=== PATIENT | female | born 2005 | race Caucasian/White ===

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

== ENCOUNTER 2025-01-01 07:42 | Inpatient (IN) ==
[2025-01-01] MEDS ORDERED: LIDOCAINE 1% LOCAL 20 ML VIAL INFIL PRN (08:00)
[2025-01-01] MEDS ORDERED: OXYTOCIN 30 UNITS/NSS 30 UNITS/500 ML BAG IV PRN ×2 (08:00→13:08)
[2025-01-01 09:00] LABS: Hematocrit (blood only) 34.7 % (37.0-47.0); Hemoglobin 11.3 g/dl (12.0-16.0); Mean Corpuscular Hemoglobin 26.2 pg (25.0-34.0); Mean Corpuscular Volume 80.3 fL (80.0-100.0); Platelet Count 255 K/uL (130-400); RDW Standard Deviation 63.2 fL (36.4-46.3); Red Blood Count 4.32 M/uL (4.20-5.40); White Blood Count 11.39 K/ul (4.8-10.8)
--- NOTE | 2025-01-01 09:00 | History & Physical Report ---
Date of Service January 01, 2025 Assessment & Plan (1) Normal labor: Plan: Pt is a 19yo at 40w 0d with PMH of Preeclampsia presenting for induction of labor Routine labs ordered Pitocin prn Epidural placement on demand Monitor tracing Expectant management for labor, anticipate Rubella equivocal, recommend MMR vaccine before d/c Admission and Anticipated Discharge Date Admission Date: January 01, 2025 History of Present Illness Chief Complaint: IOL Primary Care Provider: NO PCP Pt is a 19yo female currently at 40w 0d with an HESHAM 01/01/25 who is here for induction of labor. Adequate movement; not feeling contractions, no fluid loss; no bloody show PMH: Preeclampsia Had regular appointments with OB. Labs: Blood Type A Positive 08/27/24 Antibody Screen NEGATIVE 08/27/24 Hgb 11.1 g/dl (12.0-16.0) L 12/25/24 Hct 34.4 % (37.0-47.0) L 12/25/24 MCV 78.4 fL (80.0-100.0) L 12/25/24 Plt Count 290 K/uL (130-400) 12/25/24 Rubella IgG Antibody Equivocal (Immune) L 08/27/24 RPR Nonreactive (Nonreactive) 01/04/23 Treponema pallidum Ab Negative (Negative) 10/15/24 Hep Bs Antigen Negative (Negative) 08/27/24 Hep Bs Antigen NON-REACTIVE (NON-REACTIVE) 01/04/23 Hepatitis C Antibody Negative (Negative) 08/27/24 Hepatitis C Ab (EIA) NON-REACTIVE (NON-REACTIVE) 01/04/23 HIV 1&2 Ab/P24 Ag 4thGn Negative (Negative) 08/27/24 HIV (1&2) Ag & Ab Conf NON-REACTIVE (NON-REACTIVE) 01/04/23 Glucose 1 Hr 50 gm 135 mg/dl (70-130) H 10/15/24 Chlamydia trachomatis RNA Not Detected (NotDetected) 08/27/24 Neisseria gonorrhoeae RNA Not Detected (NotDetected) 08/27/24 Labs Reviewed: Horizon 14 negative in prior , HK Review of Systems : Denies fever, chills, headache, vision changes, shortness of breath, difficulty breathing, chest pain, palpitations, RUQ/epigastric pain, dysuria Allergies Allergy/AdvReac Type Severity Reaction Status Date / Time No Known Allergies Allergy Verified 12/31/24 09:27 Home Medications Medication Instructions Recorded Confirmed Type vits no.130-ferrous fum 1 tab PO DAILY 07/20/23 01/01/25 History 27 mg iron-folic acid 800 mcg tablet ( Vitamin) aspirin 81 mg chewable tablet 81 mg PO DAILY 12/25/24 01/01/25 History ferrous sulfate 325 mg (65 mg 325 mg PO DAILY 12/25/24 01/01/25 History iron) tablet (Iron (ferrous sulfate)) Patient History Medical History (Updated 01/01/25 @ 09:03 by Bunny Garcia MD) IUGR (intrauterine growth restriction) affecting care of mother Preeclampsia Hypokalemia Varicella vaccination Surgical History S/P myringotomy with insertion of tube Family History Denies family history of Ovarian cancer Breast cancer Colorectal cancer Social History Smoking Status: Never smoker Second Hand Exposure: No; Do You Dip or Chew Tobacco: No; Hx Alcohol Use: No Hx Substance Use: No Preferred Language: Faroese Communication Ability: Effective Motor Installer Required: No Beliefs That Will Affect Care: None marital status: Single marital status details: Familia: Martha [phone] Current Living Situation: Family Current Living Situation Comment: Patient lives with familia, pap, son, and 1 cat. Familia changes cat litter. current occupational status: employed current occupation: School worker Feels Safe at Home: Yes Safety Concerns: Feels Safe At This Time Diet: regular Assistive Devices: None Physical Exam Physical Exam: General: patient resting comfortably, NAD, non-toxic in appearance, AAOx4, answers questions appropriately. Skin: warm, dry, intact HEENT: NC/AT, anicteric sclera, conjunctiva without injection Heart: S1/S2 heard, regular, no m/r/g Lungs: equal air entry bilaterally, no rales/rhonchi/wheezes Abd: Normoactive BS, soft, NT/ND, gravid uterus Ext: warm, no clubbing/cyanosis or edema Neuro: nonfocal, speech intact, no facial droop, moving all extremities on comma nd : FHR baseline 130, moderate variability, accelerations present, decelerations absent, no contractions. Category 1 tracing. Results & Data Vital Signs (Past 12 Hours) Vital Signs Temp Pulse Resp BP 01/01/25 08:15 36.7 C 137 H 18 129/74 01/01/25 07:55 18 01/01/25 07:55 36.7 C 18 01/01/25 07:54 137 H 129/74 Supervising Physician Co-Signing Physician Notes Resident Physician Supervision Note: I interviewed and examined the patient. Discussed with Dr. Garcia and agree with findings and plan as documented in the note. Any exceptions or clarifications are listed here: ready for induction, elective. no complaints but nervous. abd soft gravid nt, efw 7-8#. sve 3/50/-2 arom clear fluid. start pitocin. fhts categ 1. expectant mgmt. Documented By: Nasreen Sumner MD, FACOG Resident Activity Tracking Resident Involvement: Resident Care Provided Care Provided: OB Delivery
[2025-01-01] MEDS: LACTATED RINGER'S 1,000 ML IV PRN (09:23)
[2025-01-01] MEDS: OXYTOCIN 30 UNITS/NSS 30 UNITS/500 ML BAG IV PRN (09:25)
[2025-01-01] MEDS ORDERED: NALOXONE HCL 1 MG in SODIUM CHLORIDE 0.9% 1,000 ML IV PRN (09:55)
[2025-01-01] MEDS ORDERED: ONDANSETRON INJ 2 MG/ML 2 ML VIAL IV PRN (09:55)
[2025-01-01] MEDS ORDERED: ROPIVACAINE 0.5% PF 5 MG/ML 20 ML VIAL EPI PRN (09:55)
[2025-01-01] MEDS ORDERED: NALOXONE HCL 0.4 MG/1 ML VIAL/CARP IV PRN (09:55)
[2025-01-01] MEDS ORDERED: diphenhydrAMINE 50 MG/ML VIAL IV PRN (09:55)
[2025-01-01] MEDS ORDERED: PROMETHAZINE 6.25 MG/50.25 ML BAG IV PRN (09:55)
[2025-01-01] MEDS ORDERED: SODIUM CHLORIDE 0.9% PF INJ 10 ML VIAL EPI PRN (09:55)
[2025-01-01] MEDS ORDERED: LIDOCAINE 2% MPF LOCAL 5 ML VIAL EPI PRN (09:55)
[2025-01-01] MEDS ORDERED: BUPIVACAINE 0.25% PF 30 ML VIAL EPI PRN (09:55)
[2025-01-01] MEDS ORDERED: NALBUPHINE HCL INJ 10 MG/ML AMP IV PRN (09:55)
[2025-01-01] MEDS ORDERED: fentANYL 2 MCG/ML BUPIVacaine 0.125%-NSS 100ML BAG EPI PRN (09:55)
--- NOTE | 2025-01-01 09:55 | Anesthesiology Consultation ---
Date of Service January 01, 2025 Assessment & Plan Chart Review Chart Review: Patient NOT seen in Pre Admission Testing and Acceptable Risk for Labor Epidural Consults Requested none ASA ASA2 Proposed Anesthesia Anesthesia Type: Labor Epidural Risk / Benefits Reviewed With: PT / POA / Parent / Guardian, Accepts Plan and Informed Consent Obtained History Height/Weight Height: 5 ft 4 in Weight: 73.936 kg Allergies Allergy/AdvReac Type Severity Reaction Status Date / Time No Known Allergies Allergy Verified 12/31/24 09:27 Medications Home Medications Medication Instructions Recorded Confirmed Last Taken vits no.130-ferrous fum 1 tab PO DAILY 07/20/23 01/01/25 12/30/24 08:00 27 mg iron-folic acid 800 mcg tablet ( Vitamin) aspirin 81 mg chewable tablet 81 mg PO DAILY 12/25/24 01/01/25 12/30/24 08:00 ferrous sulfate 325 mg (65 mg 325 mg PO DAILY 12/25/24 01/01/25 12/30/24 08:00 iron) tablet (Iron (ferrous sulfate)) Active Medications Generic Name Dose Route Start Last Admin Trade Name Freq PRN Reason Stop Dose Admin Lactated Ringer's 1,000 mls @ 125 mls/hr 01/01/25 08:00 01/01/25 09:23 Lr IV 01/03/25 07:59 125 mls/hr .Q8H PRN Administration L&D Protocol Protocol Oxytocin 30 units in 500 mls @ 1 mls/hr 01/01/25 09:08 01/01/25 09:25 Pitocin 30 Units/Nss IV 01/03/25 09:07 0.06 units/hr .Q24H PRN 1 mls/hr Labor Induction/Augmentation Administration Protocol 0.06 UNITS/HR Past Medical History Medical History (Updated 01/01/25 @ 09:03 by Bunny Garcia MD) IUGR (intrauterine growth restriction) affecting care of mother Preeclampsia Hypokalemia Varicella vaccination Exercise / Class Metabolic Activity II 4-5 Yardwork/Stairs/Walk up hill Past Family History Family History Denies family history of Ovarian cancer Breast cancer Colorectal cancer Past Surgical History Surgical History S/P myringotomy with insertion of tube Past Anesthesia History No Hx of Anesthesia Complications and No Family Hx of Anesthesia Complications History of PONV No Hx of PONV and No Hx of Motion Sickness Social History Smoking Status: Never smoker Do You Dip or Chew Tobacco: No Hx Alcohol Use: No Hx Substance Use: No substance use type: does not use Physical Exam Vital Signs Last Vital Signs Temp 36.7 C 01/01/25 08:15 Pulse 116 H 01/01/25 09:53 Resp 18 01/01/25 08:15 BP 122/78 01/01/25 09:23 Pulse Ox 100 01/01/25 09:53 ENMT Mouth: no dentition abnormality Thyromental Distance: > or= 3.5 Finger Breadths Mallampati Class: II Neck normal visual inspection Respiratory normal respiratory effort Auscultation: lungs clear to auscultation bilaterally Cardiovascular Rate/Rhythm: regular rate and regular rhythm Psychiatric Orientation: alert Testing Laboratory Results 01/01/25 08:42
[2025-01-01] MEDS: SODIUM CHLORIDE 0.9% PF INJ 10 ML VIAL ONE (10:17)
[2025-01-01] MEDS: BUPIVACAINE 0.25% PF 30 ML VIAL ONE (10:17)
[2025-01-01] MEDS: LIDOCAINE 2%/EPINEPHRINE 1:200,000 20 ML PF ONE (10:18)
[2025-01-01] MEDS: fentANYL 2 MCG/ML BUPIVacaine 0.125%-NSS 100ML BAG ONE (10:20)
[2025-01-01] MEDS: BUPIVACAINE 0.25% PF 30 ML VIAL EPI STA (10:30)
[2025-01-01] MEDS: LIDOCAINE 2%/EPINEPHRINE 1:200,000 20 ML PF EPI STA (10:31)
[2025-01-01] MEDS: SODIUM CHLORIDE 0.9% PF INJ 10 ML VIAL EPI STA (10:31)
--- NOTE | 2025-01-01 10:43 | Labor Progress Brief Note ---
Date of Service January 01, 2025 Subjective now comfortable with epidural. feels pressure Assessment & Plan (1) Encounter for induction of labor: Plan good cx change. fhts categ 1. c/w pitocin. Admission and Anticipated Discharge Date Admission Date: January 01, 2025 Physical Exam Constitutional: WD/WN, vitals as above Genitourinary: Manual OB Exam: + cervical dilation 7 cm, + cervical effacement 70% and + station 0 OB Exam Monitor Tracing: + external FHT monitor used, + external uterine monitor used (q3 pit at 5), + category I and + normal FHT variability Results & Data Vital Signs (Past 12 Hours) Vital Signs Temp Pulse Resp BP Pulse Ox 01/01/25 10:38 100 01/01/25 10:38 116 H 01/01/25 10:33 100 01/01/25 10:33 92 H 01/01/25 10:28 100 01/01/25 10:28 92 H 01/01/25 10:24 111 H 01/01/25 10:24 122/74 01/01/25 10:23 100 01/01/25 10:23 106 H 01/01/25 10:18 100 01/01/25 10:18 103 H 01/01/25 10:18 117/64 01/01/25 10:13 100 01/01/25 10:13 106 H 01/01/25 10:13 127/64 01/01/25 10:10 118 H 01/01/25 10:10 124/78 01/01/25 10:08 100 01/01/25 10:08 104 H 01/01/25 10:08 110 H 01/01/25 10:08 116/66 01/01/25 10:03 100 01/01/25 10:03 109 H 01/01/25 09:58 99 01/01/25 09:58 109 H 01/01/25 09:53 100 01/01/25 09:53 116 H 01/01/25 09:48 100 01/01/25 09:48 126 H 01/01/25 09:23 121 H 01/01/25 09:23 122/78 01/01/25 08:15 98.1 F 137 H 18 129/74 01/01/25 07:55 18 01/01/25 07:55 98.1 F 18 01/01/25 07:54 137 H 129/74 Coding Level of Care Code None Diagnoses Encounter for induction of labor Z34.90
--- NOTE | 2025-01-01 12:32 | Labor Progress Brief Note ---
Date of Service January 01, 2025 Subjective feeling pressure/ decel Assessment & Plan (1) Encounter for induction of labor: Plan good cx change. will have bladder drained and then likely ready for 2nd stage. fhts categ 2, variables but non persistent Admission and Anticipated Discharge Date Admission Date: January 01, 2025 Physical Exam Constitutional: WD/WN, vitals as above Genitourinary: Manual OB Exam: + cervical dilation (ant lip), + cervical effacement 100% and + station + 1 OB Exam Monitor Tracing: + external FHT monitor used, + external uterine monitor used, + category II, + normal FHT variability and + variable decelerations Results & Data Vital Signs (Past 12 Hours) Vital Signs Temp Pulse Resp BP Pulse Ox 01/01/25 12:28 100 01/01/25 12:28 103 H 01/01/25 12:25 101 H 01/01/25 12:25 131/85 01/01/25 12:23 96 01/01/25 12:23 100 H 01/01/25 12:18 100 01/01/25 12:18 122 H 01/01/25 12:13 100 01/01/25 12:13 118 H 01/01/25 12:11 107 H 01/01/25 12:11 128/77 01/01/25 12:08 99 01/01/25 12:08 112 H 01/01/25 12:03 100 01/01/25 12:03 120 H 01/01/25 11:58 100 01/01/25 11:58 111 H 01/01/25 11:57 103 H 01/01/25 11:57 101/58 L 01/01/25 11:53 100 01/01/25 11:53 98 H 01/01/25 11:48 100 01/01/25 11:48 101 H 01/01/25 11:43 100 01/01/25 11:43 99 H 01/01/25 11:41 120 H 01/01/25 11:41 131/59 L 01/01/25 11:38 100 01/01/25 11:38 117 H 01/01/25 11:35 18 01/01/25 11:35 98.1 F 18 01/01/25 11:33 100 01/01/25 11:33 102 H 01/01/25 11:28 100 01/01/25 11:28 112 H 01/01/25 11:26 112 H 01/01/25 11:26 115/62 01/01/25 11:23 100 01/01/25 11:23 89 01/01/25 11:18 100 01/01/25 11:18 101 H 01/01/25 11:13 100 01/01/25 11:13 127 H 01/01/25 11:13 132/58 L 01/01/25 11:08 100 01/01/25 11:08 137 H 01/01/25 11:03 100 01/01/25 11:03 113 H 01/01/25 10:58 100 01/01/25 10:58 137 H 01/01/25 10:57 100 H 01/01/25 10:57 125/74 01/01/25 10:53 100 01/01/25 10:53 106 H 01/01/25 10:48 100 01/01/25 10:48 115 H 01/01/25 10:43 100 01/01/25 10:43 104 H 01/01/25 10:41 90 01/01/25 10:41 123/69 01/01/25 10:38 100 01/01/25 10:38 116 H 01/01/25 10:33 100 01/01/25 10:33 92 H 01/01/25 10:28 100 01/01/25 10:28 92 H 01/01/25 10:24 111 H 01/01/25 10:24 122/74 01/01/25 10:23 100 01/01/25 10:23 106 H 01/01/25 10:18 100 01/01/25 10:18 103 H 01/01/25 10:18 117/64 01/01/25 10:13 100 01/01/25 10:13 106 H 01/01/25 10:13 127/64 01/01/25 10:10 118 H 01/01/25 10:10 124/78 01/01/25 10:08 100 01/01/25 10:08 104 H 01/01/25 10:08 110 H 01/01/25 10:08 116/66 01/01/25 10:03 100 01/01/25 10:03 109 H 01/01/25 09:58 99 01/01/25 09:58 109 H 01/01/25 09:53 100 01/01/25 09:53 116 H 01/01/25 09:48 100 01/01/25 09:48 126 H 01/01/25 09:23 121 H 01/01/25 09:23 122/78 01/01/25 09:10 18 01/01/25 09:10 98.1 F 18 01/01/25 08:15 98.1 F 137 H 18 129/74 01/01/25 07:55 18 01/01/25 07:55 98.1 F 18 01/01/25 07:54 137 H 129/74 Coding Level of Care Code None Diagnoses Encounter for induction of labor Z34.90
--- NOTE | 2025-01-01 13:00 | Delivery Summary ---
Vaginal Delivery Summary Date of Service January 01, 2025 Vaginal Delivery Summary The patient dilated to complete and pushed to deliver a viable male infant Apgars 8 and 9 via over intact perineum. Mouth and nose bulb suctioned at perineum. Shoulders and body delivered with ease. Infant was vigorous and crying at . Cord clamped at 30+ seconds of life and infant to maternal abdomen where the cord was then doubly clamped and cut. Placenta delivered spontaneously and intact, three-vessel cord. Hemostasis achieved with dilute pitocin and uterine massage and drainage of the bladder for approximately 5 cc under sterile conditions. Cervix and sulci intact. QBL 135 cc. Mother and baby stable in recovery. [facility] Vaginal Delivery Charge Delivery Type Details:
[2025-01-01] MEDS ORDERED: ACETAMINOPHEN 325 MG TAB PO PRN (13:08)
[2025-01-01] MEDS ORDERED: HYDROCORTISONE ACETATE 25 MG SUPP PR PRN (13:08)
[2025-01-01] MEDS ORDERED: IBUPROFEN 600 MG TAB PO PRN (13:08)
[2025-01-01] MEDS: DIPHTHER/TETAN/PERTUS Vaccine (Tdap, Adol/Adult) 0.5mL IM ONE (13:36)
--- NOTE | 2025-01-01 14:29 | Anesthesia Procedure Note ---
Date of Service January 01, 2025 Anesthesia Post Epidural Note Vital Signs Vital Signs: Temp Pulse Resp BP Pulse Ox 36.7 C 85 16 120/68 100 01/01/25 12:25 01/01/25 14:15 01/01/25 12:25 01/01/25 14:15 01/01/25 14:08 Notes Mental Status: alert / awake / arousable and participated in evaluation Patient Amnestic to Procedure: No Nausea / Vomiting: adequately controlled Pain: adequately controlled Airway Patency, RR, SpO2: stable & adequate BP & HR: stable & adequate Hydration State: stable & adequate Neuraxial Anesthesia: was administered and sensory block is resolving Anesthetic Complications: no major complications apparent and Pt Satisfied with anesthetic care Epidural: Removed without complications and With tip intact
[2025-01-01] MEDS ORDERED: MEASLES, MUMPS & RUBELLA VIRUS VACCINE (MMR) 0.5ML VIAL SQ ONE (15:15)
[2025-01-01] MEDS: BENZOCAINE 20% SPRY 85 APPLN/85 GM CAN EXT PRN (16:25)
[2025-01-01] MEDS: DOCUSATE SODIUM 100 MG CAP PO SCH (21:34)
[2025-01-02 03:13] VITALS: BP 130/86; TEMP 97.9
[2025-01-02] MEDS: PRENATAL VITAMIN 1 TAB PO SCH (07:36)
--- NOTE | 2025-01-02 08:26 | Obstetrical Progress Note ---
Date of Service January 02, 2025 Assessment & Plan (1) care and examination: stable, desires dc home. breast/rhpos/ri. f/u 6wks pp, instructions reviewed. Subjective Ambulation: ambulating normally Voiding: no voiding problems Diet Tolerance:: regular diet Lochia:: Small Feeding Type:: breast feeding no pain issues. Constitutional: + as per Subjective / HPI Physical Exam Constitutional WD/WN, vitals as above Respiratory normal respiratory effort, lungs clear to auscultation Cardiovascular Rate/Rhythm: regular rate and regular rhythm Gastrointestinal (Abdomen) Inspection/Auscultation: abdomen normal to inspection Percussion/Palpation: abdomen soft Fundus firm 2cm down Musculoskeletal nt calves no edema Neurologic grossly normal Psychiatric A+Ox3, euthymic affect Results & Data Vital Signs (Past 12 Hours) Vital Signs Temp Pulse Resp BP Pulse Ox O2 Del Method 01/02/25 03:12 97.9 F 87 16 130/86 100 Room Air 01/01/25 23:07 98.1 F 89 16 128/77 98 Room Air
[2025-01-02 08:30] VITALS: PULSE 104; RESP 18; O2SAT 96
== END 2025-01-02 13:10 | disposition home or self-care (01) | DRG 807 ==
LOC: 4S1 07:42 → 4E2 15:30
DX: Z87.59 Personal history of other complications of pregnancy, childbirth and the puerperium; O80 Encounter for full-term uncomplicated delivery; Z79.82 Long term (current) use of aspirin; Z37.0 Single live birth; Z3A.40 40 weeks gestation of pregnancy